=== PATIENT | female | born 1990 | race Caucasian/White ===

== ENCOUNTER 2016-09-20 20:09 | Observation (INO) ==
[2016-09-20 20:37] LABS: Basophils % 0.2 % (0.0-0.8); Eosinophils # 0.2 10*3/uL (0.0-0.87); Hematocrit 36.7 VOL% (35.7-47.0); Hemoglobin 13.2 GM/DL (12.0-16.0); Immature Granulocytes % 0.7 %; Immature Granulocytes Absolute 0.12 #; Lymphocytes # 2.4 10*3/uL (1.4-4.0); Lymphocytes % 14.2 % (21.3-54.2); Mean Corpuscular Hemoglobin 31 PG (27-34); Mean Platelet Volume 11.6 FL (9.6-12.0); Neutrophils # 12.9 10*3/uL (1.4-7.4); Neutrophils % 77.9 % (38.7-73.9); Platelet Count 230 T/CUMM (130-400); Red Blood Count 4.22 MC/CUMM (3.8-5.5); Red Cell Distribution Width 12.9 % (9.3-17.3); White Blood Count 16.6 T/CUMM (4-12)
[2016-09-20 20:46] LABS: Alanine Aminotransferase 11 U/L (13-56); Albumin 2.8 G/DL (3.4-5.0); Alkaline Phosphatase 81 U/L (45-117); Aspartate Amino Transferase 10 U/L (0-37); Bilirubin,Total < 0.39 MG/DL (0.2-1.0); Blood Urea Nitrogen 11 MG/DL (7-18); Calcium 9.5 MG/DL (8.5-10.1); Glucose 178 MG/DL (74-106); Osmolality,Calculated 277.7 MOS/KG (273-304); Potassium 3.7 MMOL/L (3.5-5.1); Sodium 138 MMOL/L (136-145); Total Protein 6.7 G/DL (6.4-8.3); Troponin I Only < 0.015 NG/ML (0.00-0.045)
[2016-09-20 20:48] LABS: INR 0.9; PT Patient Result 9.5 SECS; Partial Thromboplastin Time 25.7 SECS (0-40)
--- NOTE | 2016-09-20 21:09 | Emergency Department Note ---
INohelia Kasabria, am scribing for, and in the presence of, Mitali Bingham DO 20 :40. IZachery Debra, DO, personally performed the services described in this documentation, ascribed by Flora Pozo in my presence, and it is both accurate and complete . Arrival - Arrival Chief Complaint: Arrhythmia/Palpitations ED Nursing Triage Note: C/O SOB/Elevated heart rate upon waking this morning. Pt went to L&D and was evaluated- Dr. Alves who is production mechanic for Dr. Art was called and felt like she needed to be evaluated in the ER. No EKG was obtained and Dr. Alves did not see the patient while she was in L&D. Pt was "discharged" for an OB standpoint according to L&D nursing staff. Pt is 29 weeks and 2 days gestation. AB1. Pt also reports episodes of diarrhea that started today. Pt is currently being treated for hypokalemia and PIH Mode of Arrival: Wheelchair Limitations: No Limitations Source: Patient Time Seen by Provider: 09/20/16 20:26 - History of Present Illness HPI Narrative: This is a 25 y/o white female who is 26 weeks gestation presenting to the ED with c/o SOB, chest pain, and elevated heart rate upon waking this morning. Pt went to L&D where she was evaluated by Dr. Alves who is production mechanic. Dr. Art called and felt like the pt needed to be further evaluated in the ED. An EKG was not obtained by Dr. Alves and did not see the pt while she was in L&D. Pt was then "discharged" for an OB standpoint according to L&D nursing staff. Pt is being treated for PIH and hyperkalemia. She is on bed rest for HTN. Pt is A1. She denies nausea, vomiting, diarrhea, abdominal pain and back pain. pt states she is only sob with exertion. Consistency: constant Severity: moderate Date of Last Menstrual Period: KIMBERLEE Dec 04 2016 Allergies/Adverse Reactions: Allergies Allergy/AdvReac Type Severity Reaction Status Date / Time No Known Allergies Allergy Verified 09/17/16 12:02 Home Medications: Home Medications Medication Instructions Recorded Confirmed Type Multivitamin () [ 1 tablet PO DAILY 09/14/16 09/20/16 History Vitamin] Ondansetron HCl [Zofran Tab] 8 mg PO Q8HR 09/14/16 09/20/16 History Labetalol Tab [Trandate Tab] 1 tablet PO BID 09/17/16 09/20/16 History Potassium Chloride 20 meq PO DAILY 09/20/16 09/20/16 History Review of System - Review of System 12 point system: reviewed and no additional remarkable complaints except as stated - Review of System Constitutional: Absent: chills, diaphoresis, fever, weakness Eyes: Absent: vision change Head/Ears/Nose/Throat: Absent: nasal drainage Respiratory: Absent: wheezing Cardiovascular: Present: chest pain (dull pain ), dyspnea on exertion, other ( elevated heart rate ) Gastrointestinal: Absent: abdominal pain, nausea, vomiting, diarrhea Genitourinary female: Absent: dysuria Musculoskeletal: Absent: arm pain, back pain, leg pain, neck pain Skin: Absent: rash Neurological: Absent: headache, weakness, confusion, vertigo Psychiatric: Absent: anxiety Endocrine: Absent: fatigue Hematological/Lymphatic: Absent: easy bleeding Allergic/Immunologic: Absent: facial swelling Medical,Surgical,& Family Hx - Surgical History Reproductive Surgeries: Surgical HX of;: Section (2011) - Family History Family History: Reports;: Family Diabetes (father), Family Heart Disease (father ), Family Hypertension (father), Family Stroke (father) - Social History Smoking Status: Never smoker Frequency of Alcohol Use: None Type of Drug Use: None Exam Vital Signs: Vital Signs Temperature 98.8 F 09/20/16 20:09 Pulse Rate 117 H 09/20/16 21:26 Respiratory Rate 20 09/20/16 21:26 Blood Pressure 156/113 09/20/16 21:26 O2 Sat by Pulse Oximetry 97 09/20/16 21:26 - General General appearance: alert, in no apparent distress - Head Head exam: Present: atraumatic, normocephalic, normal inspection - Eye Eye exam: Present: normal appearance, PERRL, EOMI - ENT ENT exam: Present: normal exam, normal oropharynx, mucous membranes moist, TM's normal bilaterally, normal external ear exam - Neck Neck exam: Present: normal inspection, full ROM, trachea midline. Absent: tenderness - Chest Chest inspection: Present: normal inspection, symmetric chest wall rise. Absent : tenderness - Respiratory Respiratory exam: Present: normal lung sounds bilaterally - Cardiovascular Cardiovascular exam: Present: regular rate, normal rhythm, normal heart sounds - Abdominal Exam Abdominal exam: Present: soft, normal bowel sounds. Absent: distention, tenderness - Extremities Exam Extremities exam: Present: normal inspection, full ROM, normal capillary refill. Absent: tenderness, pedal edema, calf tenderness - Back Exam Back exam: Present: normal inspection, full ROM. Absent: tenderness - Neurological Exam Neurological exam: Present: alert, oriented X3, CN II-XII intact, normal gait, reflexes normal - Psychiatric Psychiatric exam: Present: normal affect, normal mood - Skin Skin exam: Present: warm, dry, intact, normal color. Absent: rash, diaphoresis Course Course Narrative: spoke with ob production mechanic , she is amenable to admission Results - Labs CBC & BMP: 09/20/16 20:18 09/20/16 20:18 Lab Results: I have reviewed the patients labs - EKG EKG results: interpreted by ERMD Disposition Clinical Impression: Sinus tachycardia Case discussed with: patient, patient's family Disposition: Still a Patient Condition: Stable Time of Disposition: 21:36
[2016-09-20] MEDS ORDERED: SODIUM CHLORIDE 0.9% 1,000 ML IV STA (21:10)
[2016-09-20] MEDS ORDERED: MAGNESIUM HYDROXIDE SUSP 30 ML UDCUP PO PRN (21:37)
[2016-09-20] MEDS ORDERED: BISACODYL 10 MG SUPP RECTAL PRN (21:37)
[2016-09-20] MEDS ORDERED: ONDANSETRON 4 MG/2 ML VIAL IV PRN (21:37)
[2016-09-20] MEDS ORDERED: ACETAMINOPHEN 325 MG TABLET PO PRN (21:37)
[2016-09-20 22:20] VITALS: BP 144/101
[2016-09-20] MEDS ORDERED: LACTATED RINGERS 1,000 ML IV SCH (23:00)
--- NOTE | 2016-09-21 07:19 | EKG Report ---
Stationary ECG Study [facility] ER Test Date: 09/20/2016 8:27:33 PM Pat Name: TONY ALEXANDRE Department: Room: [facility] Gender: F Sales Service Coordinator: : 1990 Requested by: Mitali Bingham Order Number: [id number] Reading MD: PARVIN SENIOR Intervals [place] Rate: 108 P: 61 AR: 127 QRS: 87 QRSD: 70 T: 5 QT: 323 QTc: 387 Interpretive Statements SINUS TACHYCARDIA Electronically Signed On 09-23-16 20:19:28 CDT by PARVIN SENIOR [email or web address]
[2016-09-21] MEDS ORDERED: DOCUSATE SODIUM 100 MG CAPSULE PO SCH (09:00)
--- NOTE | 2016-09-21 09:09 | XRay Report ---
Portable chest Date: 09/20/2016 Clinical history: Shortness of breath Comparison: None Technique: Portable AP sitting chest Findings: The heart is normal in size. The lungs are clear except for calcified granulomata. Unremarkable mediastinum and osseous structures. Impression: No acute cardiopulmonary pathology identified. PROCEDURE INTERPRETED AT [facility] DEPARTMENT OF RADIOLOGY Final Report Signed by: Dr. Nichol Bustillo
== END 2016-09-20 23:31 | disposition left against medical advice (07) ==
LOC: N.EDINP 20:09 → N.ED 20:09 → N.LD 22:57
PROVIDERS: ADMIT Obstetrics & Gynecology; ATTEND Obstetrics & Gynecology

== ENCOUNTER 2016-10-26 11:33 | Inpatient (IN) ==
--- NOTE | 2016-10-26 12:12 | Ultrasound Report ---
US OB biophys profile Indication: Decreased heart rate. Comparison: None. Technique: Using transcutaneous probe, routine biophysical profile was performed. Ultrasound images were captured and stored. Biophysical variables including breathing, gross body movements, tone, and qualitative amniotic fluid volume scored. Findings: Each of the above physical variables were graded at +2 for a total of +8. The fetus lies in vertex position. Heart activity is present with a heart rate of 159 beats per minute. The amniotic fluid index is 11.33cm. Impression: 1. biophysical profile score 8; normal with low risk for chronic asphyxia. 10/26/2016 12:07 PM PROCEDURE INTERPRETED AT [facility] DEPARTMENT OF RADIOLOGY Final Report Signed by: Dr. Stephen Cedillo
--- NOTE | 2016-10-26 12:45 | Ultrasound Report ---
US OB >= 14 weeks fetus Indication: Hypertension Comparison: None. Technique: Using a transabdominal probe, multiple grayscale, color Doppler, and spectral Doppler images of the uterus and bilateral ovaries were captured and stored. Findings: Endocervical canal measures 3 7 m in length. Internal os is not well visualized. The single vertex fetus has posterior placenta with amniotic fluid index of 9.59 cm. Measurements of biparietal diameter 33 weeks 1 day, head circumference 33 weeks 1 day, abdominal circumference 34 weeks 1 day, and femur length 31 weeks 2 days results in an estimated composite gestational age of 33 weeks 0 days +/- 2 weeks 2 days. The estimated date of delivery is December 14, 2016. The estimated weight is 2134 g +/- 3 120 g. The growth percentile based on ultrasound is 14.2%. Femur length to abdominal circumference ratio is minimally depressed. A four-chamber heart is present. The appearance of the spine, stomach bubble, kidneys, bladder, cord insertion, three-vessel cord is within normal limits. Maternal ovaries are not identified secondary to stage of gestation. Impression: 1. A single intrauterine gestation is present as detailed. 10/26/2016 12:09 PM PROCEDURE INTERPRETED AT [facility] DEPARTMENT OF RADIOLOGY Final Report Signed by: Dr. Stephen Cedillo
[2016-10-26] MEDS ORDERED: MEPERIDINE 50 MG/1 ML VIAL IM PRN (14:18)
[2016-10-26] MEDS ORDERED: PROMETHAZINE 25 MG/1 ML VIAL IM PRN (14:26)
[2016-10-26 14:53] LABS: Basophils % 0.3 % (0.0-0.8); Eosinophils # 0.1 10*3/uL (0.0-0.87); Hematocrit 32.4 VOL% (35.7-47.0); Hemoglobin 11.4 GM/DL (12.0-16.0); Immature Granulocytes % 0.4 %; Immature Granulocytes Absolute 0.04 #; Lymphocytes % 19.3 % (21.3-54.2); Mean Corpuscular HGB Conc 35.2 GM/DL (32-36); Mean Corpuscular Hemoglobin 31 PG (27-34); Mean Corpuscular Volume 87.1 FL (87-102); Mean Platelet Volume 12.3 FL (9.6-12.0); Monocytes # 0.6 10*3/uL (0.11-0.8); Monocytes % 6.2 % (1.7-12.7); Neutrophils # 7.5 10*3/uL (1.4-7.4); Neutrophils % 72.8 % (38.7-73.9); Platelet Count 188 T/CUMM (130-400); Red Blood Count 3.72 MC/CUMM (3.8-5.5); Red Cell Distribution Width 12.5 % (9.3-17.3); White Blood Count 10.2 T/CUMM (4-12)
[2016-10-26 14:56] LABS: Apearance,Urine Slightly Hazy (Clear); Bilirubin,Urine Negative (Negative); Blood, Urine Negative (Negative); Glucose,Urine (UA) Negative (Negative); Ketones,Urine Negative (Negative); Mucus,Urine Occasional /LPF (Occasional); Nitrite,Urine Negative (Negative); Protein,Urine 30 MG/DL; RBC,Urine 1 /HPF (0-4); Squamous Epithelial Cell,Urine Occasional /HPF (0-10); Urine Color Yellow (Yellow); Urine Specific Gravity 1.009 (1.001-1.035); Urine Urobilinogen < 2.0 EU/DL (0.2-1.0); WBC,Urine 6 /HPF (0-6)
[2016-10-26 15:03] LABS: INR 0.9; PT Patient Result 9.4 SECS; Partial Thromboplastin Time 24.7 SECS (0-40)
[2016-10-26 15:22] LABS: Alanine Aminotransferase 16 U/L (13-56); Albumin 2.3 G/DL (3.4-5.0); Alkaline Phosphatase 89 U/L (45-117); Aspartate Amino Transferase 13 U/L (0-37); Bilirubin,Total < 0.39 MG/DL (0.2-1.0); Blood Urea Nitrogen 4 MG/DL (7-18); Glucose 98 MG/DL (74-106); Osmolality,Calculated 277.3 MOS/KG (273-304); Potassium 3.4 MMOL/L (3.5-5.1); Sodium 141 MMOL/L (136-145); Total Protein 5.5 G/DL (6.4-8.3)
[2016-10-26] MEDS: LABETALOL 200 MG TABLET PO SCH ×2 (16:58→22:27)
[2016-10-26] MEDS ORDERED: hydrALAZINE 20 MG/1 ML VIAL ONE (21:32)
[2016-10-26] MEDS ORDERED: hydrALAZINE 20 MG/1 ML VIAL IV ONE ×2 (21:34→22:37)
[2016-10-26] MEDS ORDERED: MAGNESIUM SULF RIDER 100 ML IV ONE (21:44)
[2016-10-26] MEDS: ONDANSETRON 4 MG/2 ML VIAL IV PRN (22:00)
[2016-10-26] MEDS: LACTATED RINGERS 1,000 ML IV SCH (22:00)
[2016-10-26] MEDS ORDERED: MAGNESIUM SULF DRIP 40 GM/1,000 ML ML IV SCH (22:00)
[2016-10-26] MEDS ORDERED: hydrALAZINE 20 MG/1 ML VIAL IV PRN (23:06)
[2016-10-26 23:57] LABS: Apearance,Urine CLEAR (Clear); Bacteria,Urine Occasional /HPF (Few); Bilirubin,Urine Negative (Negative); Blood, Urine Negative (Negative); Glucose,Urine (UA) Negative (Negative); Ketones,Urine Negative (Negative); Nitrite,Urine Negative (Negative); Protein,Urine Negative; Squamous Epithelial Cell,Urine Occasional /HPF (0-10); Urine Color Straw (Yellow); Urine Specific Gravity 1.003 (1.001-1.035); Urine Urobilinogen < 2.0 EU/DL (0.2-1.0); WBC,Urine 3 /HPF (0-6)
[2016-10-27] MEDS ORDERED: MEPERIDINE 50 MG/1 ML VIAL IV PRN (00:28)
[2016-10-27] MEDS ORDERED: ACETAMINOPHEN 500 MG TABLET PO ONE (01:38)
[2016-10-27] MEDS ORDERED: LORazepam 2 MG/1 ML VIAL IM ONE (02:51)
[2016-10-27] MEDS ORDERED: LORazepam 2 MG/1 ML VIAL IV ONE (03:00)
[2016-10-27] MEDS ORDERED: METHYLERGONOVINE 0.2 MG/1 ML AMP ONE (03:05)
[2016-10-27] MEDS ORDERED: CITRIC ACID/SODIUM CITRATE 30 ML UDCUP ONE (03:05)
[2016-10-27] MEDS ORDERED: OXYTOCIN/LR 0 UNIT/0 ML BAG IV ONE (03:06)
[2016-10-27] MEDS ORDERED: OXYTOCIN 10 UNIT/ML VIAL ONE (03:06)
[2016-10-27 04:09] VITALS: BP 139/76
[2016-10-27] MEDS ORDERED: CITRIC ACID/SODIUM CITRATE 30 ML UDCUP PO ONE (06:40)
[2016-10-27] MEDS ORDERED: FAMOTIDINE 20 MG/2 ML VIAL IV ONE (06:40)
[2016-10-27] MEDS ORDERED: OXYTOCIN/LR 20 UNIT/1,000 ML BAG IV ONE ×3 (07:07→09:17)
[2016-10-27] MEDS: LACTATED RINGERS 1,000 ML IV SCH (07:24)
--- NOTE | 2016-10-27 07:36 | History and Physical Update ---
History and Physical Update - Dictation Physical: refer to scanned H&P - Physical Exam Mental Status: alert and oriented Heart: regular rate and rhythm Lung: clear to auscultation Abdomen: within normal limits Vitals: within normal limits History and Physical Changes: 34 wks with now worsening BPs requiring IV meds for maintenance. care without complications until about 29 weeks when BPs became a problem. Oral meds since then . Pt did receive steroids at that time. Pt presented yesterday for her twice weekly testing and BPs were persistently elevated. Mild generalized edema noted. Admitted for close observation. On MgSO4 since last evening. Last BP this morning 225/125. Will proceed with Repeat C/S. Pt also desires sterilization.
[2016-10-27] MEDS ORDERED: ONDANSETRON 4 MG/2 ML VIAL ONE (07:37)
[2016-10-27] MEDS ORDERED: PROMETHAZINE 25 MG/1 ML VIAL ONE (07:37)
[2016-10-27 08:33] LABS: Cord Venous Blood HCO3 23.5 MMOL/L; Cord Venous Blood PCO2 50.3 MMHG; Cord Venous Blood PO2 10.5 MMHG
[2016-10-27 08:36] LABS: Cord Arterial Blood HCO3 24.7 MMOL/L
[2016-10-27] MEDS ORDERED: MORPHINE 10 MG/10 ML VIAL ONE (09:03)
[2016-10-27] MEDS ORDERED: ePHEDrine 50 MG/ML AMP ONE (09:03)
[2016-10-27] MEDS ORDERED: IBUPROFEN 800 MG TABLET PO PRN (09:17)
[2016-10-27] MEDS ORDERED: SIMETHICONE CHEW 80 MG TABLET PO PRN (09:17)
[2016-10-27] MEDS ORDERED: ONDANSETRON 4 MG/2 ML VIAL IV PRN (09:17)
[2016-10-27] MEDS ORDERED: MAGNESIUM HYDROXIDE SUSP 30 ML UDCUP PO PRN (09:17)
[2016-10-27] MEDS ORDERED: ACETAMINOPHEN 325 MG TABLET PO PRN (09:17)
[2016-10-27] MEDS ORDERED: RHO(D) IMMUNE GLOBULIN 300 MCG SYRINGE IM ONE (09:17)
[2016-10-27] MEDS ORDERED: oxyCODONE/ACETAMINOPHEN 5-325 MG TABLET PO PRN (09:22)
[2016-10-27] MEDS ORDERED: MAGNESIUM SULF DRIP 40 GM/1,000 ML ML IV SCH (09:30)
[2016-10-27] MEDS ORDERED: LACTATED RINGERS 1,000 ML IV SCH (09:30)
--- NOTE | 2016-10-27 09:44 | Operative Note ---
Date of procedure: 10/27/16 Pre-op diagnosis: 1.34w4d;2.severe preeclampsia;3.prev C/S;4.desires sterilization Post-op diagnosis: same Procedure: Repeat low transverse section; Intraoperative tubal ligation with application of Filshie clips After informed consent was obtained the patient was taken to the labor and delivery OR where she was placed in supine position with left lateral tilt after administration of the subarachnoid block by members of the anesthesia department. The patient was then sterilely prepped and draped in the usual customary fashion. A Tang catheter was placed to bedside drainage. After assuring adequacy of the subarachnoid block a low transverse skin incision was made with excision of the old cicatrix. Fibrosis of the tissues was encountered consistent with patient's previous . Incision was carried through the subcutaneous tissue and Rosalind's fascia to the anterior rectus fascia. Rectus muscles are bifurcated in the midline. Peritoneum was carefully entered. A low transverse myotomy incision was then performed. Uterine cavity was entered with careful dissection. The infant was found in the cephalic presentation and delivered by the usual cephalic delivery technique without difficulty. The baby was bulb suctioned on the operative field. The cord was doubly clamped and cut. The was handed to personnel in attendance. Cord blood was collected. The placenta was manually extracted and sent to pathology for evaluation. The uterus is brought out of the abdominal cavity onto the abdominal wall. Uterine cavity was gently curetted with a moistened lap sponge. The cervix was noted to be dilated. Myotomy incision was repaired with a running interlocking stitch of 0 chromic suture from left to right and from right to left. After assuring adequate myotomy closure the adnexa were inspected and found to be without evidence pathology. The abdominal gutters were irrigated with normal saline. The fallopian tubes and ovaries were inspected and found to be without evidence pathology. A Filshie clip was placed in the midportion of the fallopian tube on the left side with care to include the entire diameter of the tube within the boundary of the clip. A similar procedure was repeated on the patient's right side Uterus was carefully replaced into the abdominal cavity. The myometrium incision was again inspected. It was found to be hemostatic. Peritoneum was closed with a running stitch of 3-0 Vicryl. Rectus muscles were noted be hemostatic. The fascia was closed in running fashion from left right and from right to left with 0 Vicryl suture. The sutures tied securely at the midline. Adequate fascial closure was assured. Rosalind's fascia was reapproximated with a running stitch of 3-0 Vicryl. Skin edges were reapproximated with surgical surgical steel margarito. The wound was sterilely cleansed and dressed in the usual and customary fashion. Patient tolerated the procedure well and was transferred to recovery in stable condition. Anesthesia: spinal Surgeon / Physician: Peggy Art Estimated blood loss: other (500cc) Specimens: other (placenta to path; cord blood to lab) Condition: stable Disposition: PACU Results - Labs CBC & BMP: 10/26/16 14:44 10/26/16 14:44 Discharge Plan - Discharge Medications No Action Vits #90/Iron Fum/FA [ Formula Tablet] 1 tablet PO DAILY Labetalol Tab [Trandate Tab] 200 mg PO BID - Follow Up or Referral - Forms/Instructions
[2016-10-27] MEDS ORDERED: hydrALAZINE 20 MG/1 ML VIAL IV ONE (11:42)
[2016-10-27] MEDS ORDERED: LABETALOL 200 MG TABLET PO ONE (12:55)
--- NOTE | 2016-10-27 13:04 | Anesthesia Post-Op ---
Anesthesia Post OP - Post Ansesthetic Evaluation Patient seen in post op: Yes Resp: within normal limits CV: within normal limits Mental: within normal limits Temp: within normal limits Eqex-Vp-Ulmnmipoc: within normal limits Nausea and Vomiting: within normal limits Pain: within normal limits
[2016-10-27] MEDS ORDERED: diphenhydrAMINE 50 MG/1 ML VIAL IV PRN (19:09)
[2016-10-27] MEDS ORDERED: hydrOXYzine HCL 25 MG/1 ML VIAL IM PRN (19:09)
[2016-10-27] MEDS ORDERED: HYDROmorphone 2 MG/1 ML VIAL IV PRN (19:09)
[2016-10-27] MEDS: ONDANSETRON 4 MG/2 ML VIAL IV PRN (19:16)
[2016-10-27] MEDS: LABETALOL 200 MG TABLET PO SCH (20:42)
[2016-10-27] MEDS: DOCUSATE SODIUM 100 MG CAPSULE PO SCH (20:47)
[2016-10-28] MEDS: LACTATED RINGERS 1,000 ML IV SCH (03:11)
[2016-10-28 05:24] LABS: Basophils % 0.3 % (0.0-0.8); Eosinophils # 0.1 10*3/uL (0.0-0.87); Eosinophils % 0.8 % (0.00-10.9); Hematocrit 29.8 VOL% (35.7-47.0); Hemoglobin 10.4 GM/DL (12.0-16.0); Immature Granulocytes % 0.4 %; Immature Granulocytes Absolute 0.05 #; Lymphocytes # 1.5 10*3/uL (1.4-4.0); Lymphocytes % 11.8 % (21.3-54.2); Mean Corpuscular HGB Conc 34.9 GM/DL (32-36); Mean Corpuscular Hemoglobin 31 PG (27-34); Mean Corpuscular Volume 87.9 FL (87-102); Mean Platelet Volume 12.2 FL (9.6-12.0); Monocytes # 0.7 10*3/uL (0.11-0.8); Monocytes % 5.1 % (1.7-12.7); Neutrophils # 10.3 10*3/uL (1.4-7.4); Neutrophils % 81.6 % (38.7-73.9); Platelet Count 170 T/CUMM (130-400); Red Blood Count 3.39 MC/CUMM (3.8-5.5); Red Cell Distribution Width 12.7 % (9.3-17.3); White Blood Count 12.7 T/CUMM (4-12)
[2016-10-28] MEDS: LABETALOL 200 MG TABLET PO SCH (08:10)
[2016-10-28] MEDS: DOCUSATE SODIUM 100 MG CAPSULE PO SCH (08:10)
[2016-10-28] MEDS ORDERED: FUROSEMIDE 20 MG/2 ML VIAL IV ONE (08:37)
[2016-10-28] MEDS ORDERED: MULTIVITAMIN (PRENATAL) TABLET PO SCH (09:00)
[2016-10-28] MEDS ORDERED: hydroCHLOROthiazide 25 MG TABLET PO SCH (09:00)
[2016-10-28 09:10] LABS: Albumin 2.1 G/DL (3.4-5.0); Bilirubin,Total 0.6 MG/DL (0.2-1.0); Calcium 6.6 MG/DL (8.5-10.1); Osmolality,Calculated 271.7 MOS/KG (273-304); Potassium 3.3 MMOL/L (3.5-5.1); Total Protein 5.1 G/DL (6.4-8.3)
[2016-10-28 10:37] LABS: Alanine Aminotransferase 15 U/L (13-56); Albumin 2.2 G/DL (3.4-5.0); Alkaline Phosphatase 81 U/L (45-117); Aspartate Amino Transferase 16 U/L (0-37); Bilirubin,Total < 0.39 MG/DL (0.2-1.0); Blood Urea Nitrogen 5 MG/DL (7-18); Calcium 6.6 MG/DL (8.5-10.1); Glucose 120 MG/DL (74-106); Osmolality,Calculated 270.8 MOS/KG (273-304); Potassium 3.3 MMOL/L (3.5-5.1); Sodium 137 MMOL/L (136-145); Total Protein 5.1 G/DL (6.4-8.3)
--- NOTE | 2016-10-28 23:06 | Discharge Summary ---
Hospital Course - Hospital Course Hospital Course: Pt presented for her twice weekly antenatao testing with chronic HTN . BPs were persistently, significantly elevated. Pt at 34 wks and had received steroids at about 29 weeks. Proceeded with Repeat C/S, BTL on 10/27/16 with no improvement with overnight observation. Pt's MgSO4 was continued until today. It was d/c'd around 8AM. IV Lasix was given with pt being quite swollen and very sedated from 3AM pain med dosing. Pt had large volume urine output. Tang was d/c'd later in the day. Pt was much more alert and was requesting dismissal as her baby had been transferred to [place] [facility] due to NICU situation at [place]. She was given strict instructions to continue her Labetolol 400mg bid, HCTZ 25 mg daily. Motrin and Tylenol #3 prn. F/u in office Wednesday 9am for staple removal, BP check. Specialty Discharge - Follow Up or Referrals Follow up with: Peggy Art DO [Physician] - 10/30/16 9:00 am (WednesdayOctober AT 0900 AM ) Discharge Plan - Discharge Data Condition at Discharge: Stable Discharge Diet: regular diet Activity: other (pelvic rest x 6 wks) Hygiene: may shower Weight Bearing at Discharge: full weight bearing Driving: not until seen by doctor Contact your physician if you experience:: fever over 101, Difficulty voiding, Redness or swelling, Nausea/Vomiting, Shortness of breath, Bleeding, pain uncontrolled by pain medications - Discharge Medications No Action Vits #90/Iron Fum/FA [ Formula Tablet] 1 tablet PO DAILY Amoxicillin Cap/Tab 500 mg PO BID Labetalol Tab [Trandate Tab] 200 mg PO BID - Follow Up or Referral Follow Up: Peggy Art DO [Physician] - 10/30/16 9:00 am (WednesdayOctober AT 0900 AM ) - Forms/Instructions Instructions: Labetalol (By mouth), Acetaminophen/Codeine (By mouth), Ibuprofen (By mouth), Hydralazine/Hydrochlorothiazide (By mouth), Section (DC), Perineal Care (DC), Surgical Site Infections (GEN), Bleeding (DC) Exam - Constitutional Vitals: Period Temp Pulse Resp BP Sys/Devries Pulse Ox Last 24 Hr 18-18 General appearance: other (edematous) - Head Head exam: Present: normal inspection, normocephalic - Eye Eye exam: Present: EOMI - Respiratory Respiratory exam: Present: clear to auscultation bilaterally - Cardiovascular Cardiovascular exam: Present: regular rate and rhythm - GI/Abdominal GI/Abdominal exam: Present: soft (fundus firm, nontender. Incision intact without E/I/D) - Neurological Exam Neurological exam: Present: oriented X3, other (moving bilateral extremeties) - Skin Skin exam: Present: normal color, warm Discharge Results Labs on day of discharge: Labs from last 24 hours 10/28/16 10/28/16 10/28/16 09:58 04:30 04:14 WBC RBC Hgb Hct MCV MCH MCHC RDW Plt Count MPV Neut % (Auto) Lymph % (Auto) Kane % (Auto) Eos % (Auto) Baso % (Auto) Neut # (Auto) Lymph # (Auto) Kane # (Auto) Eos # (Auto) Baso # (Auto) Immature Gran % Nucleated RBC % Immature Gran # Nucleated RBCs # Sodium 137 138 Potassium 3.3 L 3.3 L Chloride 102 104 Carbon Dioxide 23 21 Anion Gap 15.3 H 16.3 H BUN 5 L 5 L Creatinine 0.90 0.80 GFR Calculation 101 116 BUN/Creatinine Ratio 5.00 L 6.00 Glucose 120 H 101 Calculated Osmolality 270.8 L 271.7 L Calcium 6.6 L 6.6 L D Magnesium 7.3 H Total Bilirubin < 0.39 0.60 AST 16 17 ALT 15 14 Alkaline Phosphatase 81 82 Total Protein 5.1 L 5.1 L Albumin 2.2 L 2.1 L Globulin 2.9 3.0 Albumin/Globulin Ratio 0.7 L 0.7 L 10/28/16 10/27/16 04:13 22:36 WBC 12.7 H RBC 3.39 L Hgb 10.4 L Hct 29.8 L MCV 87.9 MCH 31 MCHC 34.9 RDW 12.7 Plt Count 170 MPV 12.2 H Neut % (Auto) 81.6 H Lymph % (Auto) 11.8 L Kane % (Auto) 5.1 Eos % (Auto) 0.8 Baso % (Auto) 0.3 Neut # (Auto) 10.3 H Lymph # (Auto) 1.5 Kane # (Auto) 0.7 Eos # (Auto) 0.1 Baso # (Auto) 0.0 Immature Gran % 0.4 Nucleated RBC % 0.0 Immature Gran # 0.05 Nucleated RBCs # 0.00 Sodium Potassium Chloride Carbon Dioxide Anion Gap BUN Creatinine GFR Calculation BUN/Creatinine Ratio Glucose Calculated Osmolality Calcium Magnesium 6.9 H Total Bilirubin AST ALT Alkaline Phosphatase Total Protein Albumin Globulin Albumin/Globulin Ratio DS: Provider Date of admission: 10/26/16 22:20 Primary care physician: . No PCP Attending physician on admission: Peggy Art DO Consults: 10/26/16 22:16 Consult to Anesthesiology [CONS] Routine Consulting Provider: Reason for Anesthesiology: Epidural Consult Comment: Epidural for pain managment 10/27/16 00:11 Consult to [facility], Educator [CONS] Routine Reason for Senior Tableau Developer: Diabetes Education 10/27/16 09:18 Consult to Canal Tender [CONS] Routine Consult Canal Tender: Breast Feeding Discharging clinician: Peggy Art DO Expected date of discharge: 10/28/16
--- NOTE | 2016-10-30 03:26 | Pathology Report from [facility] ---
[facility] ACCESSION # : [id number] PATIENT NAME : Harleen Johnson ORDERING DR : EMETERIO STOLL, CLINICAL HX: IUP @ 34.4 weeks - Repeat C-Sectoin for severe preeclampsia. C/S with tubal ligation. POST-OP DX: Same SPECIMEN INFO: Placenta GROSS DESCRIPTION: Received fresh labeled with the patients name and consists of a 358 gram placenta which measures 14.3 x 12.5 x 3.1 cm. membranes are pink-davies, translucent with adherent blood present. The umbilical cord is eccentrically inserted, contains three vessels and is approximately 17.6 cm. The surface is blue-palmer with areas of peripheral subchorionic fibrin present. The maternal surface is hemorrhagic with moderately disrupted cotyledons and marked areas of adherent clotted blood present. A few areas of scattered calcifications are present. No gross abnormalities on sectioning. Sections submitted: A membranes and cord, B and maternal surfaces. DIAGNOSIS FOR HARLEEN JOHNSON: PLACENTA, MEMBRANES, UMBILICAL CORD: Focal placental infarction with dystrophic calcification, moderate intravillous blood. Tri-vessel umbilical cord, eccentrically inserted. Membranes with focal chronic inflammation and attached blood. COLLECTED DATE: 10/28/2016 [facility] REPORT DATE: 10/29/2016 ELECTRONICALLY SIGNED BY: Dat Hurtado M.D. 10/29/2016 - 8:47:26 [facility]ri[facility]
== END 2016-10-28 19:00 | disposition home or self-care (01) | DRG 540 ==
LOC: N.LDOUT 11:33 → N.LD 11:34
PROVIDERS: ADMIT Obstetrics & Gynecology; ATTEND Obstetrics & Gynecology